=== PATIENT | female | born 1955 | race Asian ===

== ENCOUNTER → 2019-11-03 | Outpatient (CLI) | payer MEDICARE, OTHER ==
[~2019-11-03] MED LIST: ASPI-496 PO; CHOL200074 PO; COQ PO; D3 PO; MELO7.5T31 PO; MULT-252 PO; MULT-658 PO; OMEG100023 PO; OXYC5CAP2 PO; TRAM50TA2 PO; TURMERIC PO; VIT E PO; VITA1TAB19 PO; VITA200C7 PO; [UNRECOGNIZED DRUG - CODE] PO; [UNRECOGNIZED DRUG - OTHER] PO
[2019-11-03 14:43] LABS: BASOPHILS # (AUTO) 0.02 x10^3/uL (0-0.1); BASOPHILS % (AUTO) 0 % (0-1); EOSINOPHILS # (AUTO) 0.07 x10^3/uL (0-0.4); EOSINOPHILS % (AUTO) 1 % (1-7); LYMPHOCYTES # (AUTO) 2.36 x10^3/uL (1-3.4); LYMPHOCYTES % (AUTO) 30 % (22-44); MD NO; MEAN CORPUSCULAR HEMOGLOBIN 31.6 pg (27.0-34.8); MEAN CORPUSCULAR HGB CONC 33.4 g/dL (32.4-35.8); MEAN CORPUSCULAR VOLUME 94.7 fL (80-100); MEAN PLATELET VOLUME 6.8 fL (7.4-10.4); MONOCYTES # (AUTO) 0.49 x10^3/uL (0.2-0.8); MONOCYTES % (AUTO) 6 % (2-9); NEUTROPHILS # (AUTO) 4.84 x10^3/uL (1.8-6.8); NEUTROPHILS % (AUTO) 62 % (42-75); PLATELET COUNT 343 x10^3/uL (130-400); RED BLOOD COUNT 4.19 x10^6/uL (3.82-5.3); RED CELL DISTRIBUTION WIDTH 12.3 % (9.6-15.2)
[2019-11-03 14:47] LABS: INTERNATIONAL NORMALIZED RATIO 0.94 (0.93-1.1)
[2019-11-03 14:49] LABS: ALANINE AMINOTRANSFERASE 29 U/L (12-78); ANION GAP 5 mmol/L (5-15); CALCIUM 9.3 mg/dL (8.5-10.1); CHLORIDE 105 mmol/L (98-107); CREATININE 0.62 mg/dL (0.55-1.02)
[2019-11-03 14:52] LABS: ALKALINE PHOSPHATASE 66 U/L (45-117); BILIRUBIN,TOTAL 0.3 mg/dL (0.2-1.0); TOTAL PROTEIN 7.8 g/dL (6.4-8.2)
== END | disposition home or self-care (01) ==
LOC: STAR 13:31
PROVIDERS: ATTEND Orthopaedic Surgery
DX: Z01.818 Encounter for other preprocedural examination (principal); M18.12 Unilateral primary osteoarthritis of first carpometacarpal joint, left hand; M25.552 Pain in left hip
CPT/HCPCS: 36415; 80053; 83036; 85025; 85610; 85730; 87081; 93005

== ENCOUNTER 2019-11-08 05:36 | Day surgery (SDC) | payer MEDICARE, OTHER ==
[~2019-11-08] VITALS: Ht 154.9 cm; Wt 42.0 kg
[2019-11-08] MEDS ORDERED: LACTATED RINGERS 1,000 ML IV SCH (06:05)
[2019-11-08] MEDS ORDERED: TRANEXAMIC ACID 100 MG/ML, 10ML ONE ×2 (06:25)
[2019-11-08] MEDS ORDERED: EPINEPHRINE 1 MG/ML, 1ML ONE (06:26)
[2019-11-08] MEDS ORDERED: VANCOMYCIN 1,000 MG ONE (06:26)
[2019-11-08] MEDS ORDERED: ROPIvacaine/PF 0.5%, 20 ML ONE (06:26)
[2019-11-08] MEDS ORDERED: ROPIvacaine/PF 0.5%, 30 ML ONE (06:26)
[2019-11-08] MEDS ORDERED: SODIUM CHLORIDE 0.9% 50 ML ONE (06:26)
[2019-11-08] MEDS ORDERED: LIDOCAINE-MPF 1%, 2ML INFIL ONE (06:30)
[2019-11-08] MEDS ORDERED: ACETAMINOPHEN 500 MG TABLET PO ONE (06:30)
[2019-11-08] MEDS ORDERED: GABAPENTIN 300 MG CAPSULE PO ONE (06:30)
[2019-11-08] MEDS ORDERED: CHLORHEXIDINE 15 ML UDC MM ONE (06:30)
[2019-11-08] MEDS ORDERED: FENTANYL PF 250 MCG/5ML ONE (06:53)
[2019-11-08] MEDS ORDERED: MIDAZOLAM 1 MG/ML, 2ML ONE (06:57)
[2019-11-08] MEDS ORDERED: HYDROcodone/APAP 5/325 TABLET PO PRN (07:00)
[2019-11-08] MEDS ORDERED: ONDANSETRON 4 MG TABLET PO PRN (07:00)
[2019-11-08] MEDS ORDERED: ACETAMINOPHEN 650 MG/20.3 ML UDC PO PRN (07:00)
[2019-11-08] MEDS ORDERED: BISACODYL 10 MG SUPP PR PRN (07:00)
[2019-11-08] MEDS ORDERED: SENNA/DOCUSATE TABLET PO PRN (07:00)
[2019-11-08] MEDS ORDERED: ZOLPIDEM 5MG TABLET PO PRN (07:00)
[2019-11-08] MEDS ORDERED: DIPHENHYDRAMINE 25 MG CAPSULE PO PRN (07:00)
[2019-11-08] MEDS ORDERED: OXYcodone IR 5MG TABLET PO PRN (07:00)
[2019-11-08] MEDS ORDERED: ONDANSETRON 2MG/ML, 2ML IV PRN (07:00)
[2019-11-08] MEDS ORDERED: MAGNESIUM HYDROXIDE 8%, 30ML UDC PO PRN (07:00)
[2019-11-08] MEDS ORDERED: KETOROLAC 60 MG/2 ML ONE (07:19)
[2019-11-08] MEDS ORDERED: PROMETHAZINE 25 MG/ML, 1ML IV PRN (07:30)
[2019-11-08] MEDS ORDERED: ALBUTEROL SULFATE 2.5 MG/3 ML NPPB PRN (07:30)
[2019-11-08] MEDS ORDERED: MEPERIDINE/PF 25MG/0.5ML IVPush PRN (07:30)
[2019-11-08] MEDS ORDERED: hydrALAzine 20 MG/ML, 1ML IV PRN (07:30)
[2019-11-08] MEDS ORDERED: DIAZEPAM 5 MG/ML, 2ML IVPush PRN (07:30)
[2019-11-08] MEDS ORDERED: HYDROmorphone 2 MG/ML, 1ML IVPush PRN (07:30)
[2019-11-08] MEDS ORDERED: LABETALOL 5MG/ML, 20ML IV PRN (07:30)
[2019-11-08] MEDS ORDERED: OXYcodone 5 MG/5 ML ORAL.SOL UDC PO PRN (07:30)
[2019-11-08] MEDS ORDERED: FENTANYL PF 100 MCG/2ML IV PRN (07:30)
[2019-11-08] MEDS ORDERED: PROPOFOL 10 MG/ML, 20ML ONE (07:52)
[2019-11-08] MEDS ORDERED: SUCCINYLCHOLINE 20 MG/ML, 10ML ONE (07:52)
[2019-11-08] MEDS ORDERED: ONDANSETRON 2MG/ML, 2ML ONE (07:52)
[2019-11-08] MEDS ORDERED: ROCURONIUM 10MG/ML,5ML ONE (07:52)
[2019-11-08] MEDS ORDERED: DEXAMETHASONE 4 MG/ML, 1ML ONE (07:52)
[2019-11-08] MEDS ORDERED: GLYCOPYRROLATE 0.2MG/1ML, 5ML ONE (07:52)
[2019-11-08] MEDS ORDERED: CEFAZOLIN 1,000 MG ONE (07:52)
[2019-11-08] MEDS ORDERED: NEOSTIGMINE 1 MG/ML, 10ML ONE (07:52)
[2019-11-08] MEDS ORDERED: FENTANYL PF 100 MCG/2ML ONE (08:29)
[2019-11-08] MEDS ORDERED: OXYcodone 5 MG/5 ML ORAL.SOL UDC ONE (08:29)
[2019-11-08] MEDS ORDERED: DOCUSATE 100 MG CAPSULE PO SCH (09:00)
[2019-11-08 15:38] VITALS: BP 92/57
[2019-11-08] MEDS ORDERED: CEFAZOLIN PMX 2GM/50ML 50 ML IVPB SCH (16:00)
[2019-11-08] MEDS ORDERED: NS + 20MEQ KCL 1,000 ML IV SCH (17:00)
[2019-11-08] MEDS ORDERED: ASPIRIN 81 MG TABLET EC PO SCH (18:00)
[2019-11-09] MEDS ORDERED: DEXAMETHASONE 4 MG/ML, 1ML IVPush SCH (06:00)
== END 2019-11-08 16:35 | disposition home or self-care (01) ==
LOC: OUT 05:36 → 4NE 15:26 → OUT 16:35
PROVIDERS: ATTEND Orthopaedic Surgery
DX: M16.12 Unilateral primary osteoarthritis, left hip (principal); M25.752 Osteophyte, left hip; J45.909 Unspecified asthma, uncomplicated; Z79.82 Long term (current) use of aspirin; Z79.899 Other long term (current) drug therapy; Z87.891 Personal history of nicotine dependence; Z96.641 Presence of right artificial hip joint; Z82.61 Family history of arthritis; Z82.49 Family history of ischemic heart disease and other diseases of the circulatory system
CPT/HCPCS: 27130; 72170; 73502; 97110; 97161; C1713; C1776; J0171; J0330; J0690; J1100; J1885; J2250; J2405; J2704; J2795; J3010; J3370; J7120; 76000; G0378; J2710